=== PATIENT | female | born 2000 | race Two or more races ===

== ENCOUNTER → 2021-10-21 | Outpatient (CLI) | payer MEDICAID ==
[~2021-10-21] MED LIST: DENIES HOME MEDS
== END | disposition home or self-care (01) ==
LOC: LAB 09:03
PROVIDERS: ATTEND Obstetrics & Gynecology
DX: Z34.80 Encounter for supervision of other normal pregnancy, unspecified trimester (principal)
CPT/HCPCS: 36415; 81025; 84144; 84702

== ENCOUNTER → 2022-05-18 | Outpatient (CLI) | payer MEDICAID | END | disposition home or self-care (01) | LOC: LAB 09:41 | PROVIDERS: ATTEND Obstetrics & Gynecology | DX: Z34.00 Encounter for supervision of normal first pregnancy, unspecified trimester (principal); Z3A.00 Weeks of gestation of pregnancy not specified ==

== ENCOUNTER → 2022-06-01 | Outpatient (CLI) | payer MEDICAID | END | disposition home or self-care (01) | LOC: LAB 09:08 | PROVIDERS: ATTEND Obstetrics & Gynecology | DX: Z34.80 Encounter for supervision of other normal pregnancy, unspecified trimester (principal); Z3A.00 Weeks of gestation of pregnancy not specified | CPT/HCPCS: 84112 ==

== ENCOUNTER 2022-06-18 09:50 | Observation (INO) | payer MEDICAID ==
[2022-06-18] MEDS ORDERED: PREN-96 PO (11:13)
== END 2022-06-18 12:00 | disposition home or self-care (01) ==
LOC: LDRP 09:50
PROVIDERS: ADMIT Obstetrics & Gynecology; ATTEND Obstetrics & Gynecology
DX: O36.63X0 Maternal care for excessive fetal growth, third trimester, not applicable or unspecified (principal); O99.891 Other specified diseases and conditions complicating pregnancy; N13.30 Unspecified hydronephrosis; Z3A.38 38 weeks gestation of pregnancy
CPT/HCPCS: 59025; 76818; 81002; 84112; 94760; G0378; Q0114

== ENCOUNTER 2022-06-22 08:16 | Observation (INO) | payer MEDICAID ==
[~2022-06-22 08:16] MED LIST changes: +PREN-96 PO
== END 2022-06-22 09:58 | disposition home or self-care (01) ==
LOC: LDRP 08:32 → UNDOADMOB 08:32 → LDRP 09:00 → UNDODISOB 09:58
PROVIDERS: ADMIT Obstetrics & Gynecology; ATTEND Obstetrics & Gynecology
DX: O99.891 Other specified diseases and conditions complicating pregnancy (principal); N13.30 Unspecified hydronephrosis; O36.63X0 Maternal care for excessive fetal growth, third trimester, not applicable or unspecified; Z3A.39 39 weeks gestation of pregnancy
CPT/HCPCS: 59025; 76818; 81002; 94760; G0378

== ENCOUNTER 2022-06-25 07:54 | Observation (INO) | payer MEDICAID | END 2022-06-25 09:47 | disposition home or self-care (01) | LOC: LDRP 07:54 | PROVIDERS: ADMIT Obstetrics & Gynecology; ATTEND Obstetrics & Gynecology | DX: O36.63X0 Maternal care for excessive fetal growth, third trimester, not applicable or unspecified (principal); O23.03 Infections of kidney in pregnancy, third trimester; N12 Tubulo-interstitial nephritis, not specified as acute or chronic; Z3A.39 39 weeks gestation of pregnancy | CPT/HCPCS: 59025; 76818; 81002; G0378 ==

== ENCOUNTER 2022-06-26 11:55 | Inpatient (IN) | payer MEDICAID ==
[~2022-06-26] VITALS: Ht 162.6 cm; Wt 93.0 kg
[2022-06-26] MEDS ORDERED: PROMETHAZINE HCL 25 MG/ML 1ML IV PRN (12:30)
[2022-06-26] MEDS ORDERED: BUTORPHANOL TARTRATE 2 MG/1 ML VIAL IV PRN ×2 (12:30)
[2022-06-26] MEDS ORDERED: PHISODERM TOP SOLN 240ML BTL TOP PRN (12:30)
[2022-06-26] MEDS ORDERED: DERMOPLAST 60ML BOTTLE TOP PRN (12:30)
[2022-06-26] MEDS ORDERED: LIDOCAINE 2%HCL (LOCAL ANESTH.) INJ 20ML MDV IJ PRN (12:30)
[2022-06-26] MEDS ORDERED: WITCH HAZEL-GLYCERIN PAD TOP PRN (12:30)
[2022-06-26 13:22] LABS: Basophils # (auto) 0 10 ^3/uL (0-0.2); Basophils % (auto) 0.4 % (0.0-2.0); Eosinophils # (auto) 0.1 10 ^3/uL (0-0.8); Eosinophils % (auto) 0.6 % (0.0-7.0); Hematocrit 38.5 % (36.0-46.0); Hemoglobin 13.3 g/dL (12.2-16.2); Lymphocytes # (auto) 1.6 10 ^3/uL (0.4-5.4); Lymphocytes % (auto) 15.1 % (10.0-50.0); Mean Corpuscular Hemoglobin 27.2 pg (28.0-32.0); Mean Corpuscular Hgb Conc. 34.5 g/dL (32.0-36.0); Monocytes # (auto) 0.8 10 ^3/uL (0-1.3); Monocytes % (auto) 7.3 % (0.0-12.0); Neutrophils # (auto) 8.1 10 ^3/uL (1.6-8.6); Neutrophils % (auto) 76.6 % (37.0-80.0); Nucleated Red Blood Cells % 0.3 %; Red Blood Cells 4.87 10^6/uL (4.0-5.20); Red Cell Distribution Width 16.2 % (11.8-14.3); White Blood Cell 10.6 10^3/uL (4.4-10.8)
[2022-06-26 13:22] LABS: Urine Bacteria NONE SEEN /hpf (None Seen); Urine Blood Negative /uL (Negative); Urine Specific Gravity 1.011 (1.001-1.035); Urine WBC 7 /hpf (0 - 5)
[2022-06-26 13:26] LABS: Potassium 3.6 mmol/L (3.5-5.1)
[2022-06-26 13:26] LABS: Alcohol, Urine < 3.0 mg/dL (0-10); Amphetamine Screen, Urine NEGATIVE (NEGATIVE); Barbiturate Scree,Urine NEGATIVE (NEGATIVE); Benzodiazephine Screen, Urine NEGATIVE (NEGATIVE); Cannabinoid Screen, Urine NEGATIVE (NEGATIVE); Cocaine Screen, Urine NEGATIVE (NEGATIVE); Opiate Scree,Urine NEGATIVE (NEGATIVE); Phencyclidine Screen, Urine NEGATIVE (NEGATIVE)
[2022-06-26] MEDS: LACTATED RINGER'S 1,000 ML IV SCH ×4 (13:26→23:03)
[2022-06-26 13:31] LABS: INR 0.91 (0.9-1.15); Partial Thromboplastin Time 28.5 sec (24.6-33.4)
[2022-06-26 13:33] LABS: Albumin 2.7 g/dL (3.4-5.0); Bilirubin, Total 0.2 mg/dL (0.2-1.0); Calcium 8.8 mg/dL (8.5-10.1); Total Protein 7.3 g/dL (6.4-8.2)
[2022-06-26] MEDS: miSOPROStol 50 MCG per PRE-CUT 1/2 TAB PO PRN ×2 (14:36→19:44)
[2022-06-26] MEDS ORDERED: ceFAZolin 2 GM/D5W100ml 100 ML IV ONE (15:15)
[2022-06-26] MEDS ORDERED: TERBUTALINE SULFATE 1 MG/ML 1ML VIAL SC SCH (21:00)
[2022-06-26] MEDS ORDERED: METHYLERGONOVINE MALEATE 0.2 MG/ML AMP IM PRN (21:15)
[2022-06-26] MEDS ORDERED: miSOPROStol 100 mcg TAB SL PRN (21:15)
[2022-06-26] MEDS ORDERED: LACT. RINGERS/OXYTOCIN 20UNITS 500 ML IV ONE ×2 (21:15→21:45)
[2022-06-26] MEDS ORDERED: ceFAZolin 1GM/50ML 50 ML IV SCH (23:00)
[2022-06-27] MEDS: miSOPROStol 50 MCG per PRE-CUT 1/2 TAB PO PRN (00:29)
[2022-06-27] MEDS: LACTATED RINGER'S 1,000 ML IV SCH (02:28)
[2022-06-27] MEDS ORDERED: ceFAZolin 1GM/50ML 50 ML IV SCH ×2 (07:00→20:00)
[2022-06-27] MEDS ORDERED: METHYLERGONOVINE MALEATE 0.2 MG/ML AMP IM ONE ×2 (07:45→10:01)
[2022-06-27] MEDS ORDERED: ROPIVACAINE HCL 200 ML EPI SCH ×2 (08:00→14:45)
[2022-06-27] MEDS ORDERED: LACTATED RINGER'S 500 ML IV ONE (08:00)
[2022-06-27] MEDS ORDERED: LIDOCAINE W/ EPINEPHRINE 1.5 % INJ 5ML AMP IJ ONE (08:00)
[2022-06-27] MEDS ORDERED: ePHEDrine SULFATE 50 MG/ML AMP IV ONE (08:00)
[2022-06-27] MEDS ORDERED: fentaNYL CITRATE 100 MCG/2 ML VL IV ONE (08:00)
[2022-06-27] MEDS ORDERED: NALOXONE HCL 0.4 MG/ML VIAL IV ONE (08:00)
[2022-06-27] MEDS ORDERED: Lidocaine W-Epinephrine 1.5%-1:200,000 INJ 10ml Vial ONE (08:12)
[2022-06-27] MEDS ORDERED: SODIUM CHLORIDE 0.9% 1,000 ML IV ONE (16:00)
[2022-06-27 17:02] LABS: Basophils # (auto) 0 10 ^3/uL (0-0.2); Eosinophils # (auto) 0 10 ^3/uL (0-0.8); Lymphocytes # (auto) 1.1 10 ^3/uL (0.4-5.4); Mean Corpuscular Hemoglobin 26.5 pg (28.0-32.0); Monocytes # (auto) 2.1 10 ^3/uL (0-1.3)
[2022-06-27 17:04] LABS: Basophils % (auto) 0.3 % (0.0-2.0); Hematocrit 33.4 % (36.0-46.0); Lymphocytes % (auto) 5.9 % (10.0-50.0); Mean Corpuscular Volume 80.4 fL (80.0-100.0); Monocytes % (auto) 11.3 % (0.0-12.0); Neutrophils # (auto) 15.3 10 ^3/uL (1.6-8.6); Neutrophils % (auto) 82.5 % (37.0-80.0); Red Blood Cells 4.16 10^6/uL (4.0-5.20); Red Cell Distribution Width 16.2 % (11.8-14.3); White Blood Cell 18.5 10^3/uL (4.4-10.8)
[2022-06-27 18:10] LABS: INR 0.98 (0.9-1.15); Partial Thromboplastin Time 28.1 sec (24.6-33.4)
[2022-06-27 18:35] VITALS: BP 116/63
[2022-06-27] MEDS ORDERED: ACETAMINOPHEN 325 MG TAB PO PRN (19:00)
[2022-06-27] MEDS: IBUPROFEN 600 MG TAB PO PRN (19:41)
[2022-06-27] MEDS ORDERED: DOCUSATE SOD 100 MG CAP PO SCH (22:00)
[2022-06-27] MEDS ORDERED: SODIUM CHLORIDE 0.9% 500 ML IV ONE (22:45)
[2022-06-27 23:00] VITALS: BP 109/59
[2022-06-28 03:30] VITALS: BP 110/65
[2022-06-28] MEDS: IBUPROFEN 600 MG TAB PO PRN (03:56)
[2022-06-28] MEDS ORDERED: ceFAZolin 1GM/50ML 50 ML IV ONE (04:00)
[2022-06-28 07:00] VITALS: BP 106/62
[2022-06-28] MEDS ORDERED: IBUPROFEN 800 MG TAB PO PRN (09:15)
[2022-06-28 11:00] VITALS: BP 105/61
[2022-06-28 12:07] LABS: RPR Non Reactive (Non Reactive)
[2022-06-28 14:03] LABS: Basophils # (auto) 0 10 ^3/uL (0-0.2); Basophils % (auto) 0.2 % (0.0-2.0); Eosinophils # (auto) 0 10 ^3/uL (0-0.8); Eosinophils % (auto) 0.2 % (0.0-7.0); Hematocrit 29.7 % (36.0-46.0); Hemoglobin 10.1 g/dL (12.2-16.2); Lymphocytes # (auto) 2.4 10 ^3/uL (0.4-5.4); Lymphocytes % (auto) 17.1 % (10.0-50.0); Mean Corpuscular Hgb Conc. 34.1 g/dL (32.0-36.0); Mean Corpuscular Volume 79.2 fL (80.0-100.0); Monocytes # (auto) 1.2 10 ^3/uL (0-1.3); Monocytes % (auto) 8.7 % (0.0-12.0); Neutrophils # (auto) 10.4 10 ^3/uL (1.6-8.6); Neutrophils % (auto) 73.8 % (37.0-80.0); Red Blood Cells 3.75 10^6/uL (4.0-5.20); Red Cell Distribution Width 16.7 % (11.8-14.3); White Blood Cell 14.1 10^3/uL (4.4-10.8)
[2022-06-28 14:24] LABS: BUN/Creatinine Ratio 13.3 (10.0-20.0); Calcium 8.9 mg/dL (8.5-10.1); Magnesium 2.1 mg/dL (1.6-2.6); Potassium 4.4 mmol/L (3.5-5.1)
[2022-06-28 15:00] VITALS: BP 107/62
[2022-06-28 19:08] VITALS: BP 116/64
== END 2022-06-28 21:31 | disposition home or self-care (01) | DRG 560 ==
LOC: LDRP 11:55
PROVIDERS: ADMIT Obstetrics & Gynecology; ATTEND Obstetrics & Gynecology
PROC: 10D07Z6 Extraction of Products of Conception, Vacuum, Via Natural or Artificial Opening (ICD-10-PCS; principal; 2022-06-28)
PROC: 0KQM0ZZ Repair Perineum Muscle, Open Approach (ICD-10-PCS; 2022-06-28)
PROC: 3E0R3BZ Introduction of Anesthetic Agent into Spinal Canal, Percutaneous Approach (ICD-10-PCS; 2022-06-28)
PROC: 00HU33Z Insertion of Infusion Device into Spinal Canal, Percutaneous Approach (ICD-10-PCS; 2022-06-28)
DX: O99.892 Other specified diseases and conditions complicating childbirth (principal); Z37.0 Single live birth; D69.6 Thrombocytopenia, unspecified; Z3A.39 39 weeks gestation of pregnancy; R00.0 Tachycardia, unspecified; Z20.822 Contact with and (suspected) exposure to COVID-19; O99.12 Other diseases of the blood and blood-forming organs and certain disorders involving the immune mechanism complicating childbirth; O70.1 Second degree perineal laceration during delivery; O86.20 Urinary tract infection following delivery, unspecified; N39.0 Urinary tract infection, site not specified; O99.03 Anemia complicating the puerperium
CPT/HCPCS: 36415; 59025; 59409; 62282; 71045; 80048; 80053; 80307; 81001; 81002; 83735; 83880; 84443; 85025; 85379; 85610; 85730; 86592; 86850; 86900; 86901; 87426; 93005; 93306; 94760; 94762; 96360; 96361; 96365; 96374; 96375; G0378; J0690; J2590

== ENCOUNTER 2024-09-18 09:23 | Inpatient (IN) | payer MEDICAID ==
[~2024-09-18] VITALS: Ht 162.6 cm; Wt 72.6 kg
--- NOTE | 2024-09-18 10:57 | DVH ---
CLINICAL HISTORY: Low amniotic fluid. COMPARISON: US BIOPHYSICAL PROFILE on DOS: 06/25/22, US BIOPHYSICAL PROFILE on DOS: 06/22/22, US BIOPHYS ICAL PROFILE on DOS: 06/18/22 TECHNIQUE: biophysical profile was performed. Transabdominal sonographic images of the fetus we re obtained. FINDINGS: The fetus is in cephalic position. heart rate measures 120 BPM. Amniotic fluid index measures 5.4 cm with MVP of 2.0 cm. The placenta is posterior in position without evidence of previa or abruption. BPP profile is an overall score of 8/8, with 2/2 points for breathing, with at least one episode of breathing over a 30 second duration during a 30 minute observation, 2/2 points for m ovements, with 3 or more discrete body or limb movements, 2/2 points for tone, with one or more episodes of extremity extension with return to flexion, or opening and closing of hand, and 2/ 2 points for amniotic fluid, with at least 1 pocket of amniotic fluid that measures 2 cm in 2 perpend icular planes. IMPRESSION: 1. BPP score of 8/8. 2. Amniotic fluid index measures 5.4 cm with MVP of 2.0 cm.
[2024-09-18] MEDS ORDERED: miSOPROStol 50 MCG per PRE-CUT 1/2 TAB PO PRN (11:15)
[2024-09-18] MEDS ORDERED: NALBUPHINE HCL 10 MG/1ml INJECTION IV PRN (11:15)
[2024-09-18] MEDS ORDERED: LIDOCAINE 2%HCL (LOCAL ANESTH.) INJ 20ML MDV IJ PRN (11:15)
[2024-09-18 12:05] LABS: Urine Bacteria None Seen /hpf (None Seen)
[2024-09-18 12:17] LABS: Urine Blood Negative /uL (Negative); Urine Clarity Clear (Clear); Urine Color Light-Yellow (Yellow); Urine Protein, UAD Negative (Negative); Urine Squamous Epithelial Cell FEW /hpf (<5); Urine Urobilinogen Normal (Negative); Urine WBC 2 /HPF (0-5); Urine pH 6.5 (5.0-9.0)
[2024-09-18 12:19] LABS: Basophils # (auto) 0 10 ^3/uL (0-0.2); Basophils % (auto) 0.5 % (0.0-2.0); Eosinophils # (auto) 0.1 10 ^3/uL (0-0.8); Eosinophils % (auto) 0.9 % (0.0-7.0); Hematocrit 37.7 % (36.0-46.0); Hemoglobin 12.5 g/dL (12.2-16.2); Lymphocytes # (auto) 1.6 10 ^3/uL (0.4-5.4); Lymphocytes % (auto) 17.5 % (10.0-50.0); Mean Corpuscular Hemoglobin 25.1 pg (28.0-32.0); Mean Corpuscular Hgb Conc. 33.3 g/dL (32.0-36.0); Mean Corpuscular Volume 75.5 fL (80.0-100.0); Monocytes # (auto) 0.7 10 ^3/uL (0-1.3); Monocytes % (auto) 7.9 % (0.0-12.0); Neutrophils # (auto) 6.7 10 ^3/uL (1.6-8.6); Neutrophils % (auto) 73.2 % (37.0-80.0); Red Blood Cells 4.99 10^6/uL (4.0-5.20); Red Cell Distribution Width 16.4 % (11.8-14.3); White Blood Cell 9.2 10^3/uL (4.4-10.8)
[2024-09-18 12:20] LABS: Platelet Count (auto) 110 10^3/uL (140-450)
[2024-09-18 12:28] LABS: INR 0.94 (0.9-1.15); Partial Thromboplastin Time 30.5 SEC (24.5-34.5)
[2024-09-18 12:29] LABS: Amphetamine Screen, Urine Neg (NEGATIVE); Barbiturate Scree,Urine Neg (NEGATIVE); Benzodiazephine Screen, Urine Neg (NEGATIVE); Cannabinoid Screen, Urine Neg (NEGATIVE); Cocaine Screen, Urine Neg (NEGATIVE); Opiate Scree,Urine Neg (NEGATIVE); Phencyclidine Screen, Urine Neg (NEGATIVE)
[2024-09-18 12:31] LABS: Alanine Aminotransferase < 9 U/L (7-40); Albumin 3.8 g/dL (3.2-4.8); Alkaline Phosphatase 188 U/L (46-116); Anion Gap 11 (5-15); Aspartate Aminotransferase 14 U/L (<34); BUN/Creatinine Ratio 10.6 (10.0-20.0); Blood Urea Nitrogen < 5 mg/dL (9-23); Calcium 9.6 mg/dL (8.7-10.4); Carbon Dioxide 23 mmol/L (20-31); Chloride 106 mmol/L (98-107); Glucose 74 mg/dL (74-106); Sodium 140 mmol/L (136-145); Total Protein 6.6 g/dL (5.7-8.2)
[2024-09-18 12:32] LABS: Bilirubin, Total 0.3 mg/dL (0.2-1.0)
[2024-09-18] MEDS: ceFAZolin 1GM/50ML 50 ML IV SCH (13:06)
[2024-09-18] MEDS: LACTATED RINGER'S 1,000 ML IV SCH (13:07)
--- NOTE | 2024-09-18 13:18 | DVHHP2 ---
OB CC & HPI Date Date of Admission: Sep 18, 2024 Patient Identification: : 3 Para: 1 EDC: Sep 20, 2024 EGA: 39wks Chief Complaints: Reason for admission: rupture of membranes Admission Nurse Assessment Rev: No History of Present Complaints pt is admitted for iol due to oligi zia of 5cm,pt reporst leaking all day Past Medical History Cardiac: No pertinent Hx Pulmonary: No pertinent Hx Central Nervous System: No pertinent Hx GI: No pertinent Hx Hemotology/Oncology: No pertinent Hx Hepatobiliary: No pertinent Hx Psychiatric: No pertinent Hx Musculoskeletal: No pertinent Hx Rheumotologic: No pertinent Hx Infectious Disease: No peritnent Hx ENT: No pertinent Hx Renal/: No pertinent Hx Endocrine: No pertinent Hx Dermatology: No pertinent Hx Past Surgical History: No pertinent Hx OB History OB History Care: Good Care Ultrasounds: Normal mid trimester US Obstetrical Complications: None Medical Complications: None Allergies: Coded Allergies: NO KNOWN ALLERGIES (Unverified , 07/20/10) Home Meds Reported Medications Vit W/ Ferrous Fumara ( One Daily) Daily Tab, 1 TAB PO DAILY, #90 TAB 3 Refills 06/18/22 [Denies Home Meds] No Conflict Check 08/25/12 Current Medications Current Medications Medications (Trade) Dose Ordered Sig/Shereen Route PRN Reason Start Time Stop Time Status Last Admin Lactated Ringer's 1,000 ml @ 125 mls/hr Q8H IV 09/18/24 11:15 09/18/24 13:07 Nalbuphine HCl (Nubain) 10 mg Q4HP PRN IV MODERATE PAIN (4-6 PAIN SCALE) 09/18/24 11:15 Witch Lisette (Tucks) 1 pad PRN PRN TOP PERINEAL AREA DISCOMFORT 09/18/24 11:15 Sodium Lauryl Sulfate (Phisoderm) 240 ml PRN PRN TOP PERINEAL AREA DISCOMFORT 09/18/24 11:15 Benzocaine (Dermoplast) 1 applic PRN PRN TOP PERINEAL AREA DISCOMFORT 09/18/24 11:15 Misoprostol (Cytotec) 50 mcg Q4HPRN PRN PO CERVICAL RIPENING 09/18/24 11:15 Lidocaine HCl (Xylocaine) 20 ml ONCE PRN IJ PERINEAL AREA DISCOMFORT 09/18/24 11:15 Cefazolin Sodium 50 ml @ 100 mls/hr Q8H IV 09/18/24 11:15 09/18/24 13:06 Family & Social History Family/Social History Blood Type: Unknown Rubella: unknown RPR/VDRL: Negative GBS Status: Unknown HBsAG: Negative Review of Systems Constitutional: No symptom reported Ears, Nose, & Throat: No symptom reported Eyes: No symptom reported Pulmonary/Respiratory: No symptom reported Cardiovascular: No symptom reported Gastrointestinal: No symptom reported Genitourinary: No symptom reported Musculoskeletal: No symptom reported Skin: No symptom reported Psychiatric: No symptom reported Endocrine: No symptom reported Hemotologic/Lymphatic: No symptom reported OB Admission Exam Physical Exam HEENT: TMs Normal, Fontanelles Normal, Nasal Mucosa Normal, Eyes non-injected, Oropharynx Normal, PERRLA, Moist Membranes, EOMI Heart: Rhythm Normal Lungs: Clear Abdomen: Non tender Extremities: Normal Reflexes: Normal Cervical Dilatation: 2cm Effacement: 50% Station: -2 Membranes: Ruptured Amniotic Fluid: Clear Heart Rate: 130's Accelerations: Accelerations Present Decelerations: No Decelerations Short Term Variability: Present Concrete Batcher Variability: Average (6-25) Contractions on Admission: >10 Minutes Apart Intensity: Mild OB Plan Plan Admitting Diagnosis: induction of labor due to oligo Plan: Expectant Management, Induction Induction Methd: Misoprostol protocol Other Plan: informed consent obtained,start ancef and give cytotec Visit Coding OBGYN Date of Service: Sep 18, 2024 Billing Provider: TRACIE MCKEON DO TILE APPLICATOR Common Visit Codes: 53034-[id number] OBS CARE (HIGH) TILE APPLICATOR Procedure Codes: 08154-37- NON-STRESS TEST TRACIE MCKEON DO Sep 18, 2024 13:18
[2024-09-18] MEDS ORDERED: TERBUTALINE SULFATE 1 MG/ML 1ML VIAL SC PRN (14:30)
[2024-09-18] MEDS ORDERED: ePHEDrine SULFATE 50 MG/ML AMP IV ONE (14:45)
[2024-09-18] MEDS: LACTATED RINGER'S 500 ML IV ONE (14:45)
[2024-09-18] MEDS: ePHEDrine SULFATE 50 MG/ML AMP ONE (14:46)
[2024-09-18] MEDS: LACT. RINGERS/OXYTOCIN 20UNITS 1,000 ML IV SCH (15:03)
[2024-09-18] MEDS: WITCH HAZEL-GLYCERIN PAD TOP PRN (15:27)
[2024-09-18] MEDS: PHISODERM TOP SOLN 240ML BTL TOP PRN (15:27)
[2024-09-18] MEDS: DERMOPLAST 60ML BOTTLE TOP PRN (15:27)
--- NOTE | 2024-09-18 17:15 | DVHPN2 ---
[facility] Labor Progress Note Date and Time Seen Date Seen: Sep 18, 2024 Time Seen: 16:50 Subjective Subjective Comment 24yo IUP@39.5wks. Pt is comfortable with epidural, denies pain or pressure Objective Vital Signs VSS, see chart EFW last week in office was 7lbs 14oz Laboratory Tests Test 09/18/24 10:00 09/18/24 11:50 Range/Units Placental Bhknj-[id number] Positive White Blood Count 9.2 4.4-10.8 10^3/uL Red Blood Count 4.99 4.0-5.20 10^6/uL Hemoglobin 12.5 12.2-16.2 g/dL Hematocrit 37.7 36.0-46.0 % Mean Corpuscular Volume 75.5 L 80.0-100.0 fL Mean Corpuscular Hemoglobin 25.1 L 28.0-32.0 pg Mean Corpuscular Hemoglobin Concent 33.3 32.0-36.0 g/dL Red Cell Distribution Width 16.4 H 11.8-14.3 % Platelet Count 110 L 140-450 10^3/uL Mean Platelet Volume 11.1 H 6.9-10.8 fL Neutrophils (%) (Auto) 73.2 37.0-80.0 % Lymphocytes (%) (Auto) 17.5 10.0-50.0 % Monocytes (%) (Auto) 7.9 0.0-12.0 % Eosinophils (%) (Auto) 0.9 0.0-7.0 % Basophils (%) (Auto) 0.5 0.0-2.0 % Neutrophils # (Auto) 6.7 1.6-8.6 10 ^3/uL Lymphocytes # (Auto) 1.6 0.4-5.4 10 ^3/uL Monocytes # (Auto) 0.7 0-1.3 10 ^3/uL Eosinophils # (Auto) 0.1 0-0.8 10 ^3/uL Basophils # (Auto) 0 0-0.2 10 ^3/uL Nucleated Red Blood Cells 0.0 % Prothrombin Time 10.0 9.3-11.8 sec Prothrombin Time INR 0.94 0.9-1.15 Activated Partial Thromboplast Time 30.5 24.5-34.5 SEC Urine Color Light-yellow Yellow Urine Clarity Clear Clear Urine pH 6.5 5.0-9.0 Urine Specific [place] 1.010 1.001-1.035 Urine Protein Negative Negative Urine Ketones Negative Negative Urine Blood Negative Negative /uL Urine Nitrite Negative Negative Urine Bilirubin Negative Negative Urine Urobilinogen Normal Negative mg/dL Urine Leukocyte Esterase Negative Negative /uL Urine RBC <1 0 - 4 /hpf Urine Microscopic WBC 2 0-5 /HPF Urine Squamous Epithelial Cells Few <5 /hpf Urine Bacteria None seen None Seen /hpf Urine Glucose Normal Normal mg/dL Sodium Level 140 136-145 mmol/L Potassium Level 4.0 3.5-5.1 mmol/L Chloride Level 106 98-107 mmol/L Carbon Dioxide Level 23 20-31 mmol/L Anion Gap 11 5-15 Blood Urea Nitrogen < 5 L 9-23 mg/dL Creatinine 0.47 L 0.550-1.02 mg/dL Glomerular Filtration Rate Calc 136 >90 mL/min BUN/Creatinine Ratio 10.6 10.0-20.0 Serum Glucose 74 74-106 mg/dL Calcium Level 9.6 8.7-10.4 mg/dL Total Bilirubin 0.3 0.2-1.0 mg/dL Aspartate Amino Transferase (AST) 14 <34 U/L Alanine Aminotransferase (ALT) < 9 7-40 U/L Alkaline Phosphatase 188 H 46-116 U/L Total Protein 6.6 5.7-8.2 g/dL Albumin 3.8 3.2-4.8 g/dL Urine Opiates Screen Neg NEGATIVE Urine Fentanyl Screen Neg NEGATIVE Urine Barbiturates Screen Neg NEGATIVE Urine Phencyclidine Screen Neg NEGATIVE Urine Amphetamines Screen Neg NEGATIVE Urine Benzodiazepines Screen Neg NEGATIVE Urine Cocaine Screen Neg NEGATIVE Urine Cannabinoids Screen Neg NEGATIVE Treponema pallidum Antibody Non-reactive Negative Hepatitis C Antibody Negative Negative Monitoring Method Monitoring Method: External Heart Rate Heart Rate Baseline: 130 Heart Rate Variability: Moderate Presence of FHR Accelerations: Yes Presence of FHR Decelerations: No Are all 5 Components of the FH: Yes Contractions Contractions Frequency: Other (q2-3 min) Duration of Contraction: 80 Contractions Intensity: Moderate Contractions Resting Tone: Relaxed Membranes Membranes: Ruptured Amniotic Fluid Color: Clear Vaginal Exam Vag Exam Deferred: Yes (last SVE by RN: /-2, vertex) Medications Medications - Pitocin: Yes (6mu) Medication - Epidural: Yes Lab Results Lab Results Current Medications Medications (Trade) Dose Ordered Sig/Shereen Start Time Stop Time Status Last Admin Dose Admin Lactated Ringer's 1,000 ml @ 125 mls/hr Q8H 09/18/24 11:15 09/18/24 13:07 125 MLS/HR Nalbuphine HCl (Nubain) 10 mg Q4HP PRN 09/18/24 11:15 Witch Lisette (Tucks) 1 pad PRN PRN 09/18/24 11:15 09/18/24 15:27 1 PAD Sodium Lauryl Sulfate (Phisoderm) 240 ml PRN PRN 09/18/24 11:15 09/18/24 15:27 240 ML Benzocaine (Dermoplast) 1 applic PRN PRN 09/18/24 11:15 09/18/24 15:27 1 APPLIC Misoprostol (Cytotec) 50 mcg Q4HPRN PRN 09/18/24 11:15 Lidocaine HCl (Xylocaine) 20 ml ONCE PRN 09/18/24 11:15 Cefazolin Sodium 50 ml @ 100 mls/hr Q8H 09/18/24 11:15 09/18/24 13:06 100 MLS/HR Oxytocin 1,000 ml @ 6 ml/hr Q24H 09/18/24 14:30 09/18/24 15:03 6 ML/HR Terbutaline Sulfate (Brethine Inj) 0.25 mg ONCE PRN 09/18/24 14:30 Oxytocin 500 ml @ 999 mls/hr Q31M ONCE 09/18/24 14:30 09/18/24 15:00 DC Oxytocin 500 ml @ 125 mls/hr Q4H ONCE 09/18/24 15:00 09/18/24 18:59 Ephedrine Sulfate (ePHEDrine SULFATE) 10 mg PRN ONCE 09/18/24 14:45 09/18/24 14:46 DC Lactated Ringer's 500 ml @ 500 mls/hr Q1H ONCE 09/18/24 14:45 09/18/24 15:44 DC Laboratory Tests Test 09/18/24 11:50 09/18/24 10:00 Range/Units White Blood Count 9.2 4.4-10.8 10^3/uL Red Blood Count 4.99 4.0-5.20 10^6/uL Hemoglobin 12.5 12.2-16.2 g/dL Hematocrit 37.7 36.0-46.0 % Mean Corpuscular Volume 75.5 L 80.0-100.0 fL Mean Corpuscular Hemoglobin 25.1 L 28.0-32.0 pg Mean Corpuscular Hemoglobin Concent 33.3 32.0-36.0 g/dL Red Cell Distribution Width 16.4 H 11.8-14.3 % Platelet Count 110 L 140-450 10^3/uL Mean Platelet Volume 11.1 H 6.9-10.8 fL Neutrophils (%) (Auto) 73.2 37.0-80.0 % Lymphocytes (%) (Auto) 17.5 10.0-50.0 % Monocytes (%) (Auto) 7.9 0.0-12.0 % Eosinophils (%) (Auto) 0.9 0.0-7.0 % Basophils (%) (Auto) 0.5 0.0-2.0 % Neutrophils # (Auto) 6.7 1.6-8.6 10 ^3/uL Lymphocytes # (Auto) 1.6 0.4-5.4 10 ^3/uL Monocytes # (Auto) 0.7 0-1.3 10 ^3/uL Eosinophils # (Auto) 0.1 0-0.8 10 ^3/uL Basophils # (Auto) 0 0-0.2 10 ^3/uL Nucleated Red Blood Cells 0.0 % Prothrombin Time 10.0 9.3-11.8 sec Prothrombin Time INR 0.94 0.9-1.15 Activated Partial Thromboplast Time 30.5 24.5-34.5 SEC Urine Color Light-yellow Yellow Urine Clarity Clear Clear Urine pH 6.5 5.0-9.0 Urine Specific [place] 1.010 1.001-1.035 Urine Protein Negative Negative Urine Ketones Negative Negative Urine Blood Negative Negative /uL Urine Nitrite Negative Negative Urine Bilirubin Negative Negative Urine Urobilinogen Normal Negative mg/dL Urine Leukocyte Esterase Negative Negative /uL Urine RBC <1 0 - 4 /hpf Urine Microscopic WBC 2 0-5 /HPF Urine Squamous Epithelial Cells Few <5 /hpf Urine Bacteria None seen None Seen /hpf Urine Glucose Normal Normal mg/dL Sodium Level 140 136-145 mmol/L Potassium Level 4.0 3.5-5.1 mmol/L Chloride Level 106 98-107 mmol/L Carbon Dioxide Level 23 20-31 mmol/L Anion Gap 11 5-15 Blood Urea Nitrogen < 5 L 9-23 mg/dL Creatinine 0.47 L 0.550-1.02 mg/dL Glomerular Filtration Rate Calc 136 >90 mL/min BUN/Creatinine Ratio 10.6 10.0-20.0 Serum Glucose 74 74-106 mg/dL Calcium Level 9.6 8.7-10.4 mg/dL Total Bilirubin 0.3 0.2-1.0 mg/dL Aspartate Amino Transferase (AST) 14 <34 U/L Alanine Aminotransferase (ALT) < 9 7-40 U/L Alkaline Phosphatase 188 H 46-116 U/L Total Protein 6.6 5.7-8.2 g/dL Albumin 3.8 3.2-4.8 g/dL Urine Opiates Screen Neg NEGATIVE Urine Fentanyl Screen Neg NEGATIVE Urine Barbiturates Screen Neg NEGATIVE Urine Phencyclidine Screen Neg NEGATIVE Urine Amphetamines Screen Neg NEGATIVE Urine Benzodiazepines Screen Neg NEGATIVE Urine Cocaine Screen Neg NEGATIVE Urine Cannabinoids Screen Neg NEGATIVE Treponema pallidum Antibody Non-reactive Negative Hepatitis C Antibody Negative Negative Placental Gylzk-6-Bdzyhkcovmqip Positive Assessment Assessment 24yo IUP@39.5wks Induction of Labor for SROM Category I EFM GBS negative Plan Plan Continue with IV pitocin per policy. Continuous monitoring Pain mgmt- epidural in place Frequent position changes in bed with peanut ball encouraged Limit SVE unless necessary Intrauterine resuscitation PRN Anticipate CNJed will consult with Dr. Blevins PRN Plan discussed with: Patient, Spouse Visit Coding OBGYN Date of Service: Sep 18, 2024 Billing Provider: KT PRINCE CNM SUPERVISOR MULTIFOCAL LENS Common Visit Codes: [id number] INP/OBS CARE(MOD) SUPERVISOR MULTIFOCAL LENS Procedure Codes: 89169-29- NON-STRESS TEST KT PRINCE CNM Sep 18, 2024 17:15
[2024-09-18] MEDS: ROPIVACAINE HCL 100 ML ONE (17:27)
[2024-09-18] MEDS: LACT. RINGERS/OXYTOCIN 20UNITS 500 ML IV ONE ×2 (21:17→21:18)
--- NOTE | 2024-09-18 21:23 | LDN2 ---
Labor and Delivery Note Date 09/18/24 Age 24 3 Para now, 2 AB 1 EDC 09/20/2024 EGA 39.5 wks Diagnosis SROM, then Vaginal Delivery: VTX Vacuum Assisted: No Placenta: Spontaneous Sex: Male Weight pending Apgars 8/8 Nuchal Cord Transected: No Amniotic Fluid: Clear Anesthesia epidural Episiotomy: No Extension: No Repaired with 3.0 vicryl EBL QBL 150mL Labs Blood Bank 09/18/24 11:50: Blood Type O POSITIVE Complications none Conditions Stable Car Rental Service Attendant Faustino Comments/Significant Med Lana Intrauterine resuscitation done prior to delivery. At 2021 this 24yo now delivered a viable Male by w/ APGARS 8/8. RT at bedside prior to delivery. PARMJIT presentation and tight Nuchal x1 with cord reduced after . placed skin to skin on pts chest. Cord clamped and cut after pulsation ceased. Cord blood sent. Intact 3-vessel cord placenta delivered spontaneously, Murry, eccentric cord insertion. Pitocin IV bolus started. Placenta sent to pathology. Patient had epidural. Cervix/vagina inspected (intact) and first degree perineal laceration present which was repaired with 3-0 vicryl suture. IV TXA 1g given. Fundus at U, firm, midline, and light lochia. QBL 150ml. VSS. Count correct x2. Patient to care and baby to couplet care, both stable. Visit Coding OBGYN Date of Service: Sep 18, 2024 Billing Provider: KT PRINCE CNM VACUUM FORMING MACHINE OPERATOR Common Visit Codes: PROCEDURE ONLY VACUUM FORMING MACHINE OPERATOR Procedure Codes: 45470-HZW DEL INCLUDING EUGENE ROSARIO STUDENTMDW Sep 18, 2024 21:23
[2024-09-18] MEDS ORDERED: DOCU-265 PO (21:58)
[2024-09-18] MEDS ORDERED: IBU600T PO (21:58)
[2024-09-18] MEDS ORDERED: ACETAMINOPHEN 325 MG TAB PO PRN (22:00)
[2024-09-18 22:47] VITALS: BP 125/75; PULSE 114; RESP 16; TEMP 98.1; O2SAT 98
--- NOTE | 2024-09-19 00:14 | DVHPN2 ---
Progress Note Date Seen: Sep 19, 2024 Subjective S: Pt reports feeling good just tired. and formula feeding. She is going to sleep now. vital signs VSS, see chart medications Current Medications Medications Dose Ordered Sig/Shereen Route Start Time Stop Time Status Last Admin Dose Admin Nalbuphine HCl 10 mg Q4HP PRN IV 09/18/24 11:15 Cancel Witch Lisette 1 pad PRN PRN TOP 09/18/24 11:15 09/18/24 15:27 1 PAD Sodium Lauryl Sulfate 240 ml PRN PRN TOP 09/18/24 11:15 09/18/24 15:27 240 ML Benzocaine 1 applic PRN PRN TOP 09/18/24 11:15 09/18/24 15:27 1 APPLIC Misoprostol 50 mcg Q4HPRN PRN PO 09/18/24 11:15 Cancel Lidocaine HCl 20 ml ONCE PRN IJ 09/18/24 11:15 Cancel Terbutaline Sulfate 0.25 mg ONCE PRN SC 09/18/24 14:30 Cancel Ibuprofen 600 mg Q6HP PRN PO 09/18/24 22:00 Acetaminophen 650 mg Q6HPRN PRN PO 09/18/24 22:00 Prenat Multivit/ Porter/Iron/Folic Ac 1 DAILY PO 09/19/24 10:00 Docusate Sodium 200 mg DAILY PO 09/19/24 07:00 laboratory and microbiology Laboratory Tests 09/18/24 11:50 Test 09/18/24 11:50 Range/Units Serum Glucose 74 74-106 mg/dL Objective O: VSS Chest: heart sounds normal and lung sounds clear bilaterally Abd: soft, non-tender, fundus at U/firm/midline, active bowel sounds, no rebound or guarding Perineum: sutures intact, edges well approximated, no erythema/edema noted Ext: Non-tender, No edema, 2+ BLE DTRs Lochia: minimal See lab results Problems(with codes): (1) (normal spontaneous vaginal delivery) (2) First degree perineal laceration (3) Thrombocytopenia affecting Assessment/Plan A/P: 24yo now PPD#1 s/p -Continue with routine PP care Plan discussed with: Patient, Spouse Visit Coding OBGYN Date of Service: Sep 19, 2024 Billing Provider: KT PRINCE CNM OPTOMETRIST Common Visit Codes: [id number] INP/OBS CARE(MOD) KT PRINCE CNM Sep 19, 2024 00:14
[2024-09-19 03:00] VITALS: BP 127/71; PULSE 109; RESP 15; TEMP 98.5; O2SAT 97
[2024-09-19] MEDS: IBUPROFEN 600 MG TAB PO PRN (03:26)
[2024-09-19] MEDS: DOCUSATE SOD 100 MG CAP PO SCH (06:27)
[2024-09-19 07:00] VITALS: BP 128/82; PULSE 90; RESP 18; TEMP 97.9; O2SAT 99
[2024-09-19 09:40] LABS: Basophils # (auto) 0.1 10 ^3/uL (0-0.2); Basophils % (auto) 0.4 % (0.0-2.0); Eosinophils # (auto) 0.1 10 ^3/uL (0-0.8); Eosinophils % (auto) 0.5 % (0.0-7.0); Hematocrit 35.5 % (36.0-46.0); Lymphocytes # (auto) 1.6 10 ^3/uL (0.4-5.4); Lymphocytes % (auto) 13.3 % (10.0-50.0); Mean Corpuscular Hemoglobin 25.2 pg (28.0-32.0); Mean Corpuscular Hgb Conc. 33.7 g/dL (32.0-36.0); Mean Corpuscular Volume 74.8 fL (80.0-100.0); Monocytes # (auto) 1.1 10 ^3/uL (0-1.3); Monocytes % (auto) 8.8 % (0.0-12.0); Neutrophils # (auto) 9.5 10 ^3/uL (1.6-8.6); Platelet Count (auto) 116 10^3/uL (140-450); Red Blood Cells 4.75 10^6/uL (4.0-5.20); Red Cell Distribution Width 16.9 % (11.8-14.3); White Blood Cell 12.3 10^3/uL (4.4-10.8)
[2024-09-19] MEDS: PRENATAL VITAMIN TAB PO SCH (09:51)
[2024-09-19 10:40] VITALS: BP 129/80; PULSE 87; RESP 16; TEMP 97.7; O2SAT 98
[2024-09-19] MEDS ORDERED: TRANEXAMIC ACID 1,000 mg/10ml INJ VIAL IV ONE (11:37)
[2024-09-19 15:00] VITALS: BP 122/74; PULSE 98; RESP 18; TEMP 97.9; O2SAT 98
[2024-09-19 18:50] VITALS: BP 127/78; PULSE 90; RESP 16; TEMP 97.9; O2SAT 97
[2024-09-19] MEDS ORDERED: MEASLES, MUMPS & RUBELLA VAC(MMRII) 0.5ML SC ONE (20:57)
[2024-09-19] MEDS: MEASLES, MUMPS & RUBELLA VAC(MMRII) 0.5ML SC ONE (21:23)
[2024-09-19 21:34] VITALS: RESP 18
--- NOTE | 2024-09-20 13:27 | DVHDS2 ---
Obstetrics Discharge Summary Obstetrics Discharge Summary Date of Admission: Sep 18, 2024 Date of Discharge: Sep 20, 2024 Reason For Admission: Induction of Labor Procedures: NST Intrapartum Procedures: Spontaneous vaginal deliv Procedures: None Operative Complicat: Vaginal Laceration Discharge Diagnosis: Term -Delivered Discharge Information: Activity (Other), Diet (Routine), Medications (None), Instructions (Routine), Discharge to (Home), Discarge date (09-20) Visit Coding OBGYN Date of Service: Sep 19, 2024 Billing Provider: TRACIE MCKEON DO DISTRIBUTION CENTER MANAGER Common Visit Codes: 53782-DUMAGIM OBS CARE (HIGH), 36205-PPW/OBS DISCH DAY >30MIN TRACIE MCKEON DO Sep 20, 2024 13:27
== END 2024-09-19 21:34 | disposition home or self-care (01) | DRG 560 ==
LOC: LDRP 09:23 → OBSVTOIN 10:55 → LDRP 10:56
PROVIDERS: ADMIT Obstetrics & Gynecology; ATTEND Obstetrics & Gynecology
PROC: 10E0XZZ Delivery of Products of Conception, External Approach (ICD-10-PCS; principal; 2024-09-18)
PROC: 0HQ9XZZ Repair Perineum Skin, External Approach (ICD-10-PCS; 2024-09-18)
PROC: 3E033VJ Introduction of Other Hormone into Peripheral Vein, Percutaneous Approach (ICD-10-PCS; 2024-09-18)
PROC: 3E0R3BZ Introduction of Anesthetic Agent into Spinal Canal, Percutaneous Approach (ICD-10-PCS; 2024-09-18)
PROC: 00HU33Z Insertion of Infusion Device into Spinal Canal, Percutaneous Approach (ICD-10-PCS; 2024-09-18)
DX: O41.03X0 Oligohydramnios, third trimester, not applicable or unspecified (principal); Z37.0 Single live birth; O36.8290 Fetal anemia and thrombocytopenia, unspecified trimester, not applicable or unspecified; O69.81X0 Labor and delivery complicated by cord around neck, without compression, not applicable or unspecified; O70.0 First degree perineal laceration during delivery; Z3A.39 39 weeks gestation of pregnancy; Z23 Encounter for immunization
CPT/HCPCS: 36415; 59409; 62282; 76819; 80053; 80307; 81001; 84112; 85025; 85610; 85730; 86780; 86803; 86850; 86900; 86901; 94760; 94762; 96361; 96366; G0378; J2590